=== PATIENT | female | born 1985 | race African-American/Black ===

== ENCOUNTER 2016-09-09 15:31 | Emergency (ER) | payer OTHER, SELFPAY ==
[2016-09-09 16:55] LABS: Bilirubin Negative (Negative); Blood, Urine Moderate (Negative); Clarity Slightly Cloudy (Clear); Glucose, Urine (Dipstick) Negative (Negative); Leukocyte Small (Negative); Nitrite Negative (Negative); Protein, Urine (Dipstick) Negative (Neg-Trace); Urobilinogen 0.2 mg/dL (0.2-1.0)
[2016-09-09 16:56] LABS: Pregnancy Test - Urine (BHCG) NEGATIVE (NEGATIVE); Pregu Control Background? CLEAR/WHITE (CLR/WHITE); Pregu Control Bar Appear? YES (CONTROL BAR)
[2016-09-09 17:00] LABS: Bacteria/HPF 1+ HPF (None Seen)
[2016-09-09] MEDS ORDERED: Acetaminophen/Codeine 30-300mg Tablet ONE (17:45)
[2016-09-09] MEDS ORDERED: Fluconazole 100 MG TAB ONE ×3 (17:46→17:47)
[2016-09-09] MEDS ORDERED: Sulfameth/Trimethoprim DS 800-160mg TAB ONE (17:46)
[2016-09-09] MEDS ORDERED: Naproxen 500 MG TAB ONE (17:46)
[2016-09-09] MEDS ORDERED: Phenazopyridine HCl 97.5 MG TABLET ONE (17:46)
== END 2016-09-09 17:55 | disposition home or self-care (01) ==
LOC: MADERS 15:31
DX: B37.3 Candidiasis of vulva and vagina (principal); N39.0 Urinary tract infection, site not specified; F17.210 Nicotine dependence, cigarettes, uncomplicated
CPT/HCPCS: 81003; 81015; 81025; 99283

== ENCOUNTER 2016-12-21 11:54 | Emergency (ER) | payer SELFPAY ==
[2016-12-21 12:50] LABS: Bilirubin Negative (Negative); Blood, Urine Large (Negative); Clarity Cloudy (Clear); Glucose, Urine (Dipstick) Negative (Negative); Leukocyte Negative (Negative); Nitrite Negative (Negative); Protein, Urine (Dipstick) Negative (Neg-Trace); RBC/HPF GREATER THAN 50-TNTC HPF (0-3); Urobilinogen 0.2 mg/dL (0.2-1.0)
[2016-12-21 12:51] LABS: Bacteria/HPF 3+ HPF (None Seen); Trichomonas/HPF None Seen HPF (None Seen); Yeast-All Forms 2+ HPF (None Seen)
[2016-12-23 22:45] LABS: Chlamydia by PCR Not Detected (NotDetected); GC by PCR Not Detected (NotDetected)
== END 2016-12-21 13:00 | disposition home or self-care (01) ==
LOC: MADERS 11:54
DX: N39.0 Urinary tract infection, site not specified (principal); F17.210 Nicotine dependence, cigarettes, uncomplicated
CPT/HCPCS: 81003; 81015; 87077; 87086; 87186; 87491; 87591; 99283

== ENCOUNTER 2017-01-06 10:05 | Emergency (ER) | payer MEDICAID, SELFPAY ==
[2017-01-06] MEDS ORDERED: Ketorolac Tromethamine 60 MG/2 ML VIAL ONE (10:33)
== END 2017-01-06 10:45 | disposition home or self-care (01) ==
LOC: MADERS 10:05
DX: K43.9 Ventral hernia without obstruction or gangrene (principal); F17.210 Nicotine dependence, cigarettes, uncomplicated
CPT/HCPCS: 96372; J1885

== ENCOUNTER 2017-04-16 20:25 | Emergency (ER) | payer MEDICAID ==
[2017-04-16] MEDS ORDERED: Benzonatate 100 MG CAP ONE (21:01)
[2017-04-16] MEDS ORDERED: Azithromycin 250 MG TAB ONE (21:01)
== END 2017-04-16 21:14 | disposition home or self-care (01) ==
LOC: MADERS 20:25
DX: J20.9 Acute bronchitis, unspecified (principal); F17.210 Nicotine dependence, cigarettes, uncomplicated
CPT/HCPCS: 99283

== ENCOUNTER 2017-05-09 17:42 | Emergency (ER) | payer MEDICAID ==
[~2017-05-09 17:42] MED LIST: Sodium Chloride 0.9% 1,000 ML BAG ONE
[2017-05-09] MEDS ORDERED: Ondansetron HCl/PF 4 MG/2 ML Vial ONE (19:08)
[2017-05-09] MEDS ORDERED: Ketorolac Tromethamine 30 MG/ML VIAL ONE (19:08)
== END 2017-05-09 19:15 | disposition left against medical advice (07) ==
LOC: MADERS 17:42
DX: K43.9 Ventral hernia without obstruction or gangrene (principal); E11.9 Type 2 diabetes mellitus without complications; F17.210 Nicotine dependence, cigarettes, uncomplicated
CPT/HCPCS: 99283; J1885; J2405; J7050

== ENCOUNTER 2017-07-25 13:12 | Emergency (ER) | payer MEDICAID, SELFPAY | END 2017-07-25 14:05 | disposition home or self-care (01) | LOC: MADERS 13:12 | DX: H60.92 Unspecified otitis externa, left ear (principal); H66.92 Otitis media, unspecified, left ear; F17.210 Nicotine dependence, cigarettes, uncomplicated | CPT/HCPCS: 99282 ==

== ENCOUNTER 2017-10-15 19:21 | Emergency (ER) | payer MEDICAID, SELFPAY ==
[2017-10-15] MEDS ORDERED: Ondansetron ODT 4 MG TAB ONE (20:05)
== END 2017-10-15 20:25 | disposition home or self-care (01) ==
LOC: MADERS 19:21
DX: K52.9 Noninfective gastroenteritis and colitis, unspecified (principal); F17.210 Nicotine dependence, cigarettes, uncomplicated
CPT/HCPCS: 99283; Q0162

== ENCOUNTER 2017-12-12 15:49 | Emergency (ER) | payer SELFPAY ==
[2017-12-12] MEDS ORDERED: Neomycin/Polymyxin/HC Otic Solution 10 ML BOT ONE (18:20)
[2017-12-12] MEDS ORDERED: traMADol HCl 50 MG TAB ONE (18:20)
== END 2017-12-12 18:30 | disposition home or self-care (01) ==
LOC: MADERS 15:49
DX: H60.92 Unspecified otitis externa, left ear (principal); F17.210 Nicotine dependence, cigarettes, uncomplicated
CPT/HCPCS: 99282

== ENCOUNTER 2018-01-25 13:43 | Emergency (ER) | payer SELFPAY | END 2018-01-25 14:10 | disposition home or self-care (01) | LOC: MADERS 13:43 | DX: G57.91 Unspecified mononeuropathy of right lower limb (principal); F17.210 Nicotine dependence, cigarettes, uncomplicated | CPT/HCPCS: 99283 ==

== ENCOUNTER 2018-02-14 11:32 | Emergency (ER) | payer SELFPAY | END 2018-02-14 12:00 | disposition home or self-care (01) | LOC: MADERS 11:32 | DX: S10.96XA Insect bite of unspecified part of neck, initial encounter (principal); W57.XXXA Bitten or stung by nonvenomous insect and other nonvenomous arthropods, initial encounter | CPT/HCPCS: 99282 ==

== ENCOUNTER 2018-04-10 08:22 | Emergency (ER) | payer SELFPAY ==
[2018-04-10] MEDS ORDERED: Sodium Chloride Irrig Solution 250 ML BOT ONE (08:55)
== END 2018-04-10 09:10 | disposition home or self-care (01) ==
LOC: MADERS 08:22
DX: H61.23 Impacted cerumen, bilateral (principal); F17.210 Nicotine dependence, cigarettes, uncomplicated
CPT/HCPCS: 69209

== ENCOUNTER 2018-06-04 16:19 | Emergency (ER) | payer SELFPAY ==
[2018-06-04 17:04] LABS: Bilirubin Negative (Negative); Blood, Urine Trace (Negative); Glucose, Urine (Dipstick) Negative (Negative); Leukocyte Negative (Negative); Nitrite Negative (Negative); Protein, Urine (Dipstick) Negative (Neg-Trace); Urobilinogen 0.2 mg/dL (0.2-1.0)
[2018-06-04 17:12] LABS: Clarity Hazy (Clear); RBC/HPF 0-3 HPF (0-3)
[2018-06-04 17:13] LABS: Bacteria/HPF Rare-Few HPF (None Seen); WBC/HPF None Seen HPF (0-3)
[2018-06-04 17:13] LABS: Pregnancy Test - Urine (BHCG) Negative (Negative); Pregu Control Background? CLEAR/WHITE (CLR/WHITE); Pregu Control Bar Appear? YES (CONTROL BAR)
[2018-06-04] MEDS ORDERED: Ibuprofen 800 MG TAB ONE (17:17)
== END 2018-06-04 17:40 | disposition home or self-care (01) ==
LOC: MADERS 16:19
DX: N30.00 Acute cystitis without hematuria (principal); F17.210 Nicotine dependence, cigarettes, uncomplicated
CPT/HCPCS: 81003; 81015; 81025; 99284

== ENCOUNTER 2018-07-10 20:13 | Emergency (ER) | payer SELFPAY | END 2018-07-10 20:50 | disposition home or self-care (01) | LOC: MADERS 20:13 | DX: R10.30 Lower abdominal pain, unspecified (principal) | CPT/HCPCS: 99283 ==

== ENCOUNTER 2018-09-23 09:24 | Emergency (ER) | payer SELFPAY | END 2018-09-23 10:50 | disposition home or self-care (01) | LOC: MADERS 09:24 | DX: J18.9 Pneumonia, unspecified organism (principal); J01.90 Acute sinusitis, unspecified; F17.210 Nicotine dependence, cigarettes, uncomplicated | CPT/HCPCS: 87081; 87430; 87804; 99283 ==

== ENCOUNTER 2018-10-24 13:00 | Emergency (ER) | payer SELFPAY ==
[2018-10-24 13:52] LABS: #Eosinphils 0.2 thou/uL (0.0-0.7); #Lymphocytes 2.3 thou/uL (1.20-3.40); #Monocytes 0.5 thou/uL (0.11-0.59); #Neutrophils 2.4 thou/uL (1.40-6.50); %Basophils 0.9 % (0.0-1.0); %Eosinophils 3.8 % (0.0-10.0); %Lymphocytes 42.9 % (21.0-51.0); %Monocytes 8.9 % (0.0-10.0); %Neutrophils 43.6 % (42.0-75.0); Anisocytosis MODERATE=16-30 cells (100X) (0-5/hpf); Hemoglobin 6.1 g/dL (12.0-16.0); Hypochromia MODERATE=16-30 cells (100X) (0-5/hpf); MDiff Complete? YES; Mean Corpuscular HGB CONC 28.1 g/dL (32.0-36.0); Mean Corpuscular Hemoglobin 17.9 pg (27.0-31.0); Mean Corpuscular Volume 63.7 fL (78.0-98.0); Mean Platelet Volume 7.2 fL (7.4-10.4); Microcytosis MODERATE=15-30 cells (100X) (0-5/hpf); Platelet Count 416 thou/uL (130-400); Platelet Morphology Comment Appears Increased; RBC Distribution Width 18.3 % (11.5-14.5); Red Blood Cell (RBC) Count 3.39 mill/uL (4.20-5.40); White Blood Cell (WBC) Count 5.4 thou/uL (4.8-10.8)
[2018-10-24 13:53] LABS: BHCG - Serum Negative (NEGATIVE); Pregs Control Background? CLEAR/WHITE (CLR/WHITE); Pregs Control Bar Appear? YES (CONTROL BAR)
[2018-10-24 16:15] LABS: INR-International Normal Ratio 1.1; Prothrombin Time 13.8 SEC (12.0-14.7)
[2018-10-24 16:16] LABS: PTT 34.2 SEC (22.9-36.1)
[2018-10-24 16:24] LABS: ALT (SGPT) 10 U/L (8-55); AST (SGOT) 13 U/L (5-34); Albumin 3.9 g/dL (3.5-5.0); Alkaline Phosphatase 75 U/L (40-150); Anion Gap 12 mmol/L (10-20); BUN (Urea Nitrogen) 8 mg/dL (7.0-18.7); Bilirubin, Total Less than 0.2 mg/dL (0.2-1.2); Calc. Creatinine Clearance 0 mL/min (70-130); Calcium 10.3 mg/dL (7.8-10.44); Carbon Dioxide 20 mmol/L (22-29); Chloride 110 mmol/L (98-107); Estimated GFR-MDRD Greater than 90; Globulin 3.3 g/dL (2.4-3.5); Glucose 86 mg/dL (70-105); Protein, Total 7.2 g/dL (6.0-8.3); Sodium 138 mmol/L (136-145)
[2018-10-24] MEDS ORDERED: Ondansetron PF 4 MG/2 ML Vial IVP PRN (19:25)
[2018-10-24] MEDS ORDERED: Ondansetron ODT 4 MG TAB SL PRN (19:25)
[2018-10-24] MEDS ORDERED: diphenhydrAMINE 50 MG/ML VIAL IVP PRN (19:25)
[2018-10-24] MEDS ORDERED: Acetaminophen 325 MG TAB PO PRN (19:25)
[2018-10-24 20:56] LABS: Reticulocyte Count 1.5 % (0.5-1.5)
== END 2018-10-24 17:35 | disposition short-term general hospital (02) ==
LOC: MADERS 13:00
DX: N93.9 Abnormal uterine and vaginal bleeding, unspecified (principal); D64.9 Anemia, unspecified; F17.210 Nicotine dependence, cigarettes, uncomplicated
CPT/HCPCS: 36415; 36430; 80053; 84703; 85025; 85046; 85610; 85730; 86850; 86900; 86901; 93005; P9016

== ENCOUNTER 2024-04-01 17:05 | Emergency (ER) | payer OTHER, SELFPAY ==
[2024-04-01 18:21] LABS: INR-International Normal Ratio 1.1; Prothrombin Time 14.2 sec (12.0-14.7)
[2024-04-01 18:22] LABS: PTT 33.1 sec (22.9-36.1)
[2024-04-01 18:23] LABS: #Eosinphils 0.3 thou/uL (0.0-0.7); #Lymphocytes 1.9 thou/uL (1.20-3.40); #Monocytes 0.6 thou/uL (0.11-0.59); %Basophils 0.8 % (0.0-1.0); %Eosinophils 4.7 % (0.0-10.0); %Monocytes 9.7 % (0.0-10.0); %Neutrophils 51.7 % (42.0-75.0); BHCG - Serum Negative (NEGATIVE); Hematocrit 29.9 % (36.0-47.0); Hemoglobin 8.2 g/dL (12.0-16.0); Hypochromia MODERATE=16-30 cells (100X) (0-5/hpf); MDiff Complete? YES; Macrocytosis SLIGHT = 6-15 cells (100X) (0-5/hpf); Mean Corpuscular HGB CONC 27.6 g/dL (32.0-36.0); Mean Platelet Volume 7.7 fL (7.4-10.4); Platelet Adequacy Comment Appears Adequate; Platelet Count 299 10x3/uL (130-400); Pregs Control Background? CLEAR/WHITE (CLR/WHITE); Pregs Control Bar Appear? YES (CONTROL BAR); RBC Distribution Width 18.5 % (11.5-14.5); Red Blood Cell (RBC) Count 4.33 mill/uL (4.20-5.40); White Blood Cell (WBC) Count 5.8 10x3/uL (4.8-10.8)
[2024-04-01 18:24] LABS: Anion Gap 14 mmol/L (10-20); BUN (Urea Nitrogen) 10 mg/dL (7.0-18.7); Calc. Creatinine Clearance 0 mL/min (70-130); Carbon Dioxide 15 mmol/L (22-29); Chloride 112 mmol/L (98-107); D-Dimer Test 1.23 mcg/mL (0.27-0.43); Estimated GFR 116; Glucose 86 mg/dL (70-105); Sodium 137 mmol/L (136-145)
== END 2024-04-01 19:17 | disposition short-term general hospital (02) ==
LOC: MADERS 17:05
DX: M79.671 Pain in right foot (principal); D64.9 Anemia, unspecified; E83.52 Hypercalcemia; F17.210 Nicotine dependence, cigarettes, uncomplicated; Z55.6 Problems related to health literacy
CPT/HCPCS: 36415; 80048; 84703; 85025; 85379; 85610; 85730; 99284